=== PATIENT | female | born 1955 | race Caucasian/White ===

== ENCOUNTER → 2018-11-30 | Outpatient (CLI) | payer OTHER ==
[2018-12-01 16:08] LABS: HPV 16 Negative (Negative); HPV 18 Negative (Negative); HPV OTHER HR TYPES Negative (Negative)
== END | disposition home or self-care (01) ==
LOC: LAB SHORT 13:45 → LAB 13:45
PROVIDERS: Family Medicine
DX: Z01.419 Encounter for gynecological examination (general) (routine) without abnormal findings (principal)
CPT/HCPCS: 87624; G0145

== ENCOUNTER 2019-04-29 06:15 | Day surgery (SDC) | payer OTHER ==
[~2019-04-29] VITALS: Ht 170.2 cm; Wt 75.0 kg
[~2019-04-29 06:15] MED LIST: Aspirin EC81 MG PO; VOLTAREN100 GM
[2019-04-29] MEDS ORDERED: ATOR80 PO (06:45)
--- NOTE | 2019-04-29 08:10 | NUR ---
TO RECOVERY ROOM VIA RECLINER. TR BAND INTACT WITH 12 CC AIR.
--- NOTE | 2019-04-29 11:07 | NUR ---
TO BATHROOM. TOLERATED WELL. DRESSED FOR DISCHARGE. DISCHARGE INSTRUCTIONS GIVEN WITH VERBAL AND WRITTEN UNDERSTANDING.
--- NOTE | 2019-04-29 11:08 | NUR ---
TR BAND INTACT. NO BLEEDING AT SITE.
--- NOTE | 2019-04-29 11:32 | NUR ---
TR BAND REMOVED. SITE SOFT NON TENDER, NO BLEEDING AT SITE. SITE CLEANED, POLYMEM CLOTH DOT AND IMMOBILIZER APPLIED.
--- NOTE | 2019-04-29 12:10 | NUR ---
DISCHARGED HOME VIA WHEELCHAIR. DRIVING.
== END 2019-04-29 12:10 | disposition home or self-care (01) ==
LOC: MHTC 06:15
DX: R94.39 Abnormal result of other cardiovascular function study (principal); R06.09 Other forms of dyspnea; R00.1 Bradycardia, unspecified; I10 Essential (primary) hypertension; M19.90 Unspecified osteoarthritis, unspecified site; E78.5 Hyperlipidemia, unspecified; I37.1 Nonrheumatic pulmonary valve insufficiency; Z79.82 Long term (current) use of aspirin; Z79.899 Other long term (current) drug therapy
CPT/HCPCS: 93454; 99152; 99153; C1769; C1894; J1644; J2250; J3010; J7030; Q9967

== ENCOUNTER → 2025-06-07 | Outpatient (CLI) | payer OTHER ==
[~2025-06-07] MED LIST changes: +ATOR80 PO
[2025-06-07 14:45] LABS: Stool Occult Bld Immuno 1 Negative (NEGATIVE)
== END ==
LOC: LAB 14:24 → LAB SHORT 14:24
PROVIDERS: Family Medicine
DX: Z12.11 Encounter for screening for malignant neoplasm of colon (principal)
CPT/HCPCS: G0328